=== PATIENT | male | born 1960 | race African-American/Black ===

== ENCOUNTER 2022-08-03 03:40 | Emergency (ER) | payer MEDICAID ==
[~2022-08-03] VITALS: Ht 175.3 cm; Wt 93.0 kg
[2022-08-03] MEDS ORDERED: ACETAMINOPHEN WITH CODEINE 300/30MG TABLET PO ONE (04:30)
[2022-08-03] MEDS ORDERED: ACETAMINOPHEN WITH CODEINE 300/30MG TABLET PO NR (05:15)
[2022-08-03] MEDS ORDERED: COLCHICINE 0.6MG TABLET PO ONE (05:45)
[2022-08-03] MEDS ORDERED: COLCHICINE 0.6MG TABLET PO NR (05:45)
[2022-08-03] MEDS ORDERED: IBUP-2030 PO (07:25)
[2022-08-03] MEDS ORDERED: COLC0.6C3 MT (07:25)
[2022-08-03] MEDS ORDERED: T3 PO (07:25)
[2022-08-03 07:36] VITALS: BP 154/74
== END 2022-08-03 08:10 | disposition home or self-care (01) ==
LOC: ER 03:40
DX: M10.041 Idiopathic gout, right hand (principal); M10.061 Idiopathic gout, right knee
CPT/HCPCS: 73130; 73562; 99284; Z7610

== ENCOUNTER 2022-09-06 23:56 | Emergency (ER) | payer MEDICAID, OTHER ==
[~2022-09-06] VITALS: Ht 170.2 cm; Wt 95.7 kg
[~2022-09-06 23:56] MED LIST: COLC0.6C3 MT; IBUP-2030 PO; T3 PO
[2022-09-07] MEDS ORDERED: ACETAMINOPHEN WITH CODEINE 300/30MG TABLET PO STA (02:38)
[2022-09-07] MEDS ORDERED: KETOROLAC 30MG/ML VIAL IM STA (02:38)
[2022-09-07] MEDS ORDERED: DEXAMETHASONE 10 MG/ML VIAL IM ONE (02:45)
[2022-09-07 03:15] VITALS: BP 144/77
[2022-09-07] MEDS ORDERED: NAPR-681 PO (04:12)
== END 2022-09-07 04:30 | disposition home or self-care (01) ==
LOC: ER 23:56
DX: M10.9 Gout, unspecified (principal)
CPT/HCPCS: 73130; 96372; 99284; J1100; J1885; Z7610

== ENCOUNTER 2024-01-05 15:44 | Emergency (ER) | payer OTHER ==
[~2024-01-05] VITALS: Ht 177.8 cm; Wt 91.0 kg
[~2024-01-05 15:44] MED LIST changes: -IBUP-2030 PO; +NAPR-681 PO
[2024-01-05 15:51] VITALS: BP 140/87; RESP 18; TEMP 98.5; O2SAT 98
[2024-01-05 16:08] VITALS: PULSE 93
[2024-01-05] MEDS: METHYLPREDNISOLONE SOD SUCC 125MG/2ML (ACT-O-VIAL) IM ONE (16:30)
[2024-01-05] MEDS ORDERED: P20 MT (16:32)
== END 2024-01-05 17:24 | disposition home or self-care (01) ==
LOC: ER 15:44
DX: M10.9 Gout, unspecified (principal); I10 Essential (primary) hypertension; Z98.890 Other specified postprocedural states
CPT/HCPCS: 99283; 73140; 96372; J2919